=== PATIENT | female | born 1975 | race Caucasian/White ===

== ENCOUNTER 2016-11-27 11:00 | Day surgery (SDC) | payer MEDICARE, MEDICAID ==
[~2016-11-27 11:00] MED LIST: ABILIFY5 M1 PO; ABILIFY5 MG; ABILIFY5 MG PO; ACETYLCYSTE INH; ADULT ASPIRIN81 MG; ALOE VESTA TP; ALOE VESTA141 GM TP; ALOE VESTA56 G1 TP; AMANTADINE HCL; AMANTADINE100 MG PO; AMPICILLIN250 MG PO; ARICEPT5 M1 PO; ASPIR 8181 M1 PO; ASPIRIN81 MG PO; ASTELIN; ASTELIN137 MCG NS; AZELASTINE137 MCG/01; BACLOFEN10 MG; BACLOFEN10 MG PO; BACLOFEN20 M1 PO; BACTRIM1 TAB PO; BISACODYL10 MG/SU RC; CALCARB 600 W/V1 TAB PO; CALCIUM 500 +1 EAC4 PO; CALCIUM CITRATE; CARBIDOPA-LE1 TAB.SA; CARBIDOPA-LEVO E1 EA PO; CARBIDOPA-LEVO1 EAC9 PO; CELEBREX200 M1 PO; CELEBREX200 MG; CELEBREX200 MG PO; CHILDRENS1 TAB.CH; CIPRO250 MG PO; CIPRO500 MG/51 IVP; CIPROFLOXACIN750 M1 PO; CITRACAL + D E1 EAC1 PO; CITRACAL PO; CLONAZEPAM1 M2 PO; COUMADIN4 M1 PO; COUMADIN5 M1 PO; COUMADIN5 M2 PO; COUMADIN5 MG; COUMADIN6 M1 PO; COUMADIN6 MG PO; COUMADIN7.5 MG PO; CULTURELLE1 EAC2 PO; DESITIN60 GM TP; DIFLUCAN150 M1 PO; DOCUSATE SODIU100 MG PO; DOK PLUS PO; DOK PLUS TABLE1 EAC1 PO; FEXOFENADINE H180 MG; FOLIC ACID0.4 M1 PO; FOLIC ACID1 MG; FOLIC ACID1 MG PO; GABAPENTIN300 M1 PO; HEPARIN 31 UNIT/1 M IV; HYDROCODON-ACE1 EA16 PO; KAOPECTATE PO; KEFLEX500 M1 PO; KEFLEX500 MG; KEPPRA1000 M1 PO; KEPPRA1000 MG PO; KEPPRA500 M3 PO; KEPPRA500 MG; LORTAB 5-325 M1 EAC1 PO; LOVENOX80 MG/0.1 SC; LOVENOX80 MG/0.1 SQ; MACROBID 100 M100 MG PO; MACROBID100 MG/CAP PO; MILK OF MAG PO; MIRALAX17 GM PO; MUCINEX600 M1 PO; MUCINEX600 MG PO; MUCOMYST 20% INH4 ML AERO NEB; MYCOSTATIN15 GM TP; NEURONTIN300 MG PO; NORCO 5-325 TA1 EACH PO; NORCO 5/325 TAB1 TAB PO; NORCO 5/3251 TAB PO; NORCO 7.5-3251 EACH; NORCO 7.5-3251 EACH PO; NYSTATIN15 G3 TP; PROVIGIL100 M1 PO; PROVIGIL100 MG PO; REMERON45 M1 PO; REMERON45 MG; REMERON45 MG PO; RESTORIL15 MG PO; SENNA8.6 M; SENNA8.6 M2 PO; SILVADENE20 GM TP; SINEMET 25-1001 EACH PO; SINEMET ER 25/11 TAB PO; SINGULAIR10 M1 PO; SYMMETREL100 MG PO; TEMAZEPAM15 MG PO; TYLENOL EXTRA500 M1 PO; TYLENOL325 M2 PO; TYLENOL325 MG PO; TYLENOL650 MG PO; VANCOMYCIN1 GM/VIA2 IV; VISINE ADVANCED15 ML OP; VITAM; VITAMIN C PO; VITAMIN D3; VITAMIN D33000 UNI1 PO; VITAMIN D350000 UNI1 PO; VITAMIN D50000 UNIT PO; WARFARIN SODIUM5 M2 PO; WOMEN MULTIVIT1 EACH PO; WOMENS MULTIPLE1 TAB PO; XYZAL5 M1 PO; XYZAL5 MG PO; ZOFRAN4 MG PO; ZOLOFT100 MG; ZOLOFT100 MG PO; ZYRTEC10 MG; [UNRECOGNIZED DRUG - OTHER]; [UNRECOGNIZED DRUG - OTHER] PO; [UNRECOGNIZED DRUG - OTHER] PO; [UNRECOGNIZED DRUG - REMARK]; [UNRECOGNIZED DRUG - REMARK]
[2016-11-27 12:21] LABS: INR 1.6 INR (0.9-1.1); PROTHROMBIN TIME 18.4 SECONDS (9.0-13.6)
[2017-03-16] MEDS ORDERED: MACROBID 100 M100 M1 PO (00:27)
== END 2016-11-27 15:30 ==
LOC: SHSB 11:00 → ORW 13:00 → PACU 14:00 → SHSB 14:20
PROVIDERS: Anesthesiology
PROC: 0TCB8ZZ Extirpation of Matter from Bladder, Via Natural or Artificial Opening Endoscopic (ICD-10-PCS; principal; 2016-11-27)
DX: N21.0 Calculus in bladder (principal); F32.9 Major depressive disorder, single episode, unspecified; G40.409 Other generalized epilepsy and epileptic syndromes, not intractable, without status epilepticus; Z86.73 Personal history of transient ischemic attack (TIA), and cerebral infarction without residual deficits; Z88.8 Allergy status to other drugs, medicaments and biological substances; Z90.49 Acquired absence of other specified parts of digestive tract; Z79.899 Other long term (current) drug therapy; Z98.890 Other specified postprocedural states
CPT/HCPCS: J1956